=== PATIENT | female | born 1930 ===

== ENCOUNTER 2017-09-20 10:21 | Day surgery (SDC) | payer OTHER ==
[2017-08-29 21:06] VITALS: BMI 37.0
[2017-09-20] MEDS ORDERED: Midazolam 2 MG/2 ML VIAL ONE (13:06)
[2017-09-20] MEDS ORDERED: Iodixanol 320 MG/ML 100 ML BOTTLE IV ONE (13:18)
--- NOTE | 2017-09-21 04:33 | CARDCATH ---
DATE: 09/20/2017 INDICATIONS: Ana Mitchell is a pleasant 86-year-old female, who was admitted to [facility] with recurrent pleural effusion and was being plan to undergo VATS procedure and was evaluated with preoperative cardiovascular risk stratification with a stress test, which shows possible ischemia in the inferior bhardwaj. Therefore, she was brought to the Mgmt Specialist for preoperative risk stratification. PROCEDURE PERFORMED: Left heart catheterization with selective left and right coronary angiogram via right radial approach, 6-Swiss right radial arterial access, wristband for hemostasis. TECHNIQUE OF PROCEDURE: After obtaining informed consent, the patient was brought to the cardiac catheterization suite in post-absorptive and non-sedated state. The patient was prepped and draped in the usual sterile fashion. A 2% lidocaine was used for infiltration of anesthesia. Using modified Seldinger technique, a 6-Swiss sheath was introduced into the right radial artery. Subsequently, over a J-wire, JR-4 and JL-4 diagnostic catheters were used to engage the left and right coronary systems. Angiograms were obtained in different orthogonal views. LV gram was obtained in the GARCIA view. HEMODYNAMICS FINDINGS: Left ventricular end-diastolic pressure was 38 mmHg. There was no gradient noted from the aortic valve. There was no AI and no DC. Left ventricular ejection fraction estimated to be 50% to 55%. CORONARY ANATOMY: The left main is a large-size vessel, bifurcates into left anterior descending and the left circumflex coronary artery. Left anterior descending artery is a large-size vessel, gives off medium-size diagonal branch and a few septal perforators, which has the mild nonobstructive disease. The circumflex runs in the AV groove, gives off 2 medium-size obtuse marginal branches. Right coronary artery ostial spasm noted of 50% with mild diffuse disease. IMPRESSION: Nonobstructive coronary artery disease as well as spasm of the right coronary artery. Mild nonobstructive disease in the left anterior descending. Normal ejection fraction with elevated filling pressures. RECOMMENDATIONS: Continue aggressive medical management, risk factor modification, titration of therapy for diastolic CHF. Edilberto Reyes MD
== END 2017-09-20 16:45 ==
LOC: C.SDS 10:21
PROVIDERS: ATTEND Internal Medicine Interventional Cardiology
DX: I25.10 Atherosclerotic heart disease of native coronary artery without angina pectoris (principal); I50.9 Heart failure, unspecified
CPT/HCPCS: 93452; J1644; J2250; J3010; Q9967